=== PATIENT | male | born 1950 | race Caucasian/White ===

== ENCOUNTER → 2016-11-28 | Outpatient (CLI) | payer MEDICARE, OTHER ==
[~2016-11-28] MED LIST: ASPIRIN LO-DOSE81 MG PO; COLACE100 MG PO; DESYREL100 MG PO; FLOVENT DISKUS50 MCG INH; IPRAT-ALBUT 0.5-3 ML INH; LIPITOR80 MG PO; LOPRESSOR50 MG PO; NASAL SPRAY44 ML INH; NASONEX NASAL S17 GM INH; PLAVIX75 MG PO; PRINIVIL OR ZES10 MG PO; PROVENTIL OR V6.7 GM INH; SINGULAIR10 MG PO
== END | disposition disaster alternative care site (69) ==
LOC: GRAD 15:18
DX: M51.26 Other intervertebral disc displacement, lumbar region (principal); M47.896 Other spondylosis, lumbar region

== ENCOUNTER → 2017-02-06 | Outpatient (CLI) | payer MEDICARE, OTHER | END | disposition disaster alternative care site (69) | LOC: GRAD 15:17 | DX: M54.5 Low back pain (principal); M85.48 Solitary bone cyst, other site; M47.894 Other spondylosis, thoracic region; M47.896 Other spondylosis, lumbar region ==